=== PATIENT | female | born 1965 | race Caucasian/White ===

== ENCOUNTER 2018-03-03 22:52 | Emergency (ER) | payer OTHER ==
[2018-03-03 22:57] VITALS: TEMP 97.9; BMI 25.8
--- NOTE | 2018-03-04 00:16 | PDOC ---
Attending Attestation - Resident Resident Name: AiramChristopher - ED Attending Attestation I have performed the following: I have examined & evaluated the patient, The case was reviewed & discussed with the resident, I agree w/resident's findings & plan, Exceptions are as noted - HPI HPI: 03/04/18 00:45 52-year-old female with past medical history of gastritis, cholelithiasis, hyperlipidemia presents with epigastric pain. The patient reported that she was in her usual state health when approximate 9 PM, she had drank some coffee. Subsequently developed some burning like sensation in the epigastric radiating up to her chest. Reports some shortness of breath. No fevers or chills. Denies nausea or vomiting. The patient rubs her abdomen and the symptoms resolved. - Physicial Exam PE: 03/04/18 00:46 GENERAL: Awake, alert, and fully oriented, in no acute distress HEAD: No signs of trauma EYES: EOMI, sclera anicteric, conjunctiva clear ENT: Auricles normal inspection, hearing grossly normal, nares patent, Moist mucosa NECK: Normal ROM, supple, LUNGS: Breath sounds equal, clear to auscultation bilaterally. No wheezes, and no crackles HEART: Regular rate and rhythm, normal S1 and S2, no murmurs, rubs or gallops ABDOMEN: Soft, mildly TTP epigastric. Cox sign negative. No guarding, no rebound. No masses EXTREMITIES: Normal range of motion, no edema. No clubbing or cyanosis. No cords, erythema, or tenderness NEUROLOGICAL: Cranial nerves II through XII grossly intact. Normal speech SKIN: Warm, Dry, normal turgor, no rashes or lesions noted. - Medical Decision Making 03/04/18 00:46 Vital Signs Temp Pulse Resp BP Pulse Ox 97.9 F 94 H 18 120/60 99 03/03/18 22:55 03/03/18 22:55 03/03/18 22:55 03/03/18 22:55 03/03/18 22:55 Differential includes gastritis versus cholelithiasis. I suspect this is likely gastritis. However, we'll obtain labs and right upper quadrant ultrasound. If the workup is unremarkable, we'll refer the patient to outpatient general surgery and discharge with a PPI or H2 rik. History and physical makes ACS or PE unlikely. 03/04/18 01:12 CBC, BMP 03/04/18 00:28 03/04/18 00:28 CMP Sodium 140 mmol/L (136-145) 03/04/18 00:28 Potassium 4.8 mmol/L (3.5-5.1) 03/04/18 00:28 Chloride 104 mmol/L (98-107) 03/04/18 00:28 Carbon Dioxide 29 mmol/L (21-32) 03/04/18:28 Anion Gap 6 MMOL/L (8-16) L 03/04/18:28 BUN 14 mg/dL (7-18) 03/04/18 00:28 Creatinine 0.8 mg/dL (0.55-1.3) 03/04/18 00:28 Creat Clearance w eGFR > 60 (>60) 03/04/18: Random Glucose 96 mg/dL (74-106) 03/04/18: Calcium 9.3 mg/dL (8.5-10.1) 03/04/18 00: Total Bilirubin 0.3 mg/dL (0.2-1) 03/04/18 00:28 AST 21 U/L (15-37) 03/04/18 00:28 ALT 21 U/L (13-61) 03/04/18 00:28 Alkaline Phosphatase 62 U/L (45-117) 03/04/18 00:28 Creatine Kinase 63 IU/L (26-192) 03/04/18 00:28 Troponin I < 0.02 ng/ml (0.00-0.05) 03/04/18 00:28 Total Protein 7.5 g/dl (6.4-8.2) 03/04/18 00:28 Albumin 3.9 g/dl (3.4-5.0) 03/04/18 00:28 Lipase 142 U/L (73-393) 03/04/18 00:28 03/04/18 02:12 RUQ ultrasound with no acute cholecystitis. Hemangiomas. Follow up with general surgery. Heart Score/ECG Review #1 ECG reviewed & interpreted by me at: 23:05 03/04/18 00:16 NSR 82, no std/phong, normal axis, normal intervals, QTC 439 msec
--- NOTE | 2018-03-04 00:17 | PDOC ---
History of Present Illness - General Chief Complaint: Chest Pain Stated Complaint: CHEST PAIN NAUSEA Time Seen by Provider: 03/04/18 00:14 - History of Present Illness Initial Comments: 03/04/18 00:34 The patient is a 52 year old female with a history of HLD, Gallstones who presents for evaluation of abdominal pain. The patient reports that she was drinking coffee tonight when she experienced acute onset of sharp burning epigastric abdominal pain with radiation into her chest prompting her presentation to the ED for further evaluation. She states that her symptoms have now resolved and she is currently asymptomatic. She otherwise denies fevers , chills, SOB, vomiting, or changes with urination or bowel movements. Past History - Past Medical History Allergies/Adverse Reactions: Allergies Allergy/AdvReac Type Severity Reaction Status Date / Time No Known Drug Allergies Allergy Verified 03/03/18 22:57 Home Medications: Ambulatory Orders No Home Medications 0 dose .ROUTE UTDICT 04/19/12 Oxycodone HCl/Acetaminophen [Percocet 5/325] 1 combo PO Q6H PRN #20 tablet 04/29 Ranitidine [Zantac -] 150 mg PO DAILY #14 tablet 03/04/18 Anemia: No Asthma: No Cancer: No Cardiac Disorders: No CVA: No COPD: No CHF: No Dementia: No Diabetes: No GI Disorders: No Disorders: No HTN: No Hypercholesterolemia: No Liver Disease: No Seizures: No Thyroid Disease: No - Surgical History Abdominal Surgery: Yes (HERNIA) Appendectomy: No Cardiac Surgery: No Cholecystectomy: No Lung Surgery: No Neurologic Surgery: No Orthopedic Surgery: No - Suicide/Smoking/Psychosocial Hx Smoking Status: Yes Smoking History: Current every day smoker Have you smoked in the past 12 months: Yes Number of Cigarettes Smoked Daily: 30 Information on smoking cessation initiated: Yes 'Breaking Loose' booklet given: 04/28/12 Hx Alcohol Use: Yes (SOCIAL) Drug/Substance Use Hx: No Substance Use Type: None Hx Substance Use Treatment: No Review of Systems - Review of Systems Comments:: 03/04/18 00:37 Constitutional: No fevers, chills, fatigue, malaise HEENT: No Rhinorrhea, nasal congestion, visual changes Cardiovascular: Chest pain. No syncope, palpitations, lightheadedness Respiratory: No Cough, SOB, Hemoptysis, Gastrointestinal: Abdominal pain. No Nausea, Vomiting, Constipation, Diarrhea, Melena Genitourinary: No Dysuria, Frequency, Urgency, Hesitancy, Hematuria, Flank pain Musculoskeletal: No Myalgia, arthralgia Skin: No rashes, itching, bruising, pallor Neurologic: No Headache, Dizziness, Numbness, Weakness, or Tingling Psychiatric: No Hallucinations. No SI or HI *Physical Exam - Vital Signs Last Vital Signs Temp Pulse Resp BP Pulse Ox 97.9 F 94 H 18 120/60 99 03/03/18 22:55 03/03/18 22:55 03/03/18 22:55 03/03/18 22:55 03/03/18 22:55 - Physical Exam Comments: 03/04/18 00:38 General Appearance: Nourished. No Apparent Distress HEENT: No Pharyngeal Erythema, Tonsillar Exudate, Tonsillar Erythema Neck: No Cervical Lymphadenopathy Respiratory/Chest: Lungs Clear, Normal Breath Sounds. No Crackles, Rales, Rhonchi, Wheezing Cardiovascular: Regular Rhythm, Regular Rate. No Murmur, Gallops, Rubs Gastrointestinal/Abdominal: Normal Bowel Sounds, Soft. No Guarding, Rebound, Tenderness Musculoskeletal: No CVA Tenderness Extremity: Normal Capillary Refill Integumentary: Normal Color, Dry, Warm Neurologic: Fully Oriented, Alert, Normal Mood/Affect, Normal Response, Heart Score/ECG Review #1 ECG reviewed & interpreted by me at: 00:38 General ECG Interpretation: Sinus Rhythm, Normal Rate, Normal Intervals, No acute ischemic changes ED Treatment Course - LABORATORY CBC & Chemistry Diagram: 03/04/18 00:28 03/04/18 00:28 Medical Decision Making - Medical Decision Making 03/04/18 00:38 The patient is a 52 year old female with a history of HLD, Gallstones who presents for evaluation of abdominal pain. Differential includes but is not limited to: ACS, Gastritis, Pancreatitis, Gallstones, Infectious, Metabolic Derangement. Given the patient's history and physical exam, we will obtain a cbc, cmp, troponin, lipase, ekg, gallbladder US to evaluate further. We will continue to monitor and reassess while here in the ED. 03/04/18 02:07 CBC, cmp, troponin, lipase are unremarkable. Gallbladder US is unremarkable as preliminarily read by our balloon artist radiologist. Chest plain film is unremarkable. The patient continues to remain asymptomatic and has a benign abdominal exam. We are comfortable discharging the patient home with surgery follow up. We discussed the results, plan, and return precautions with the patient who voiced understanding and is agreeable with the plan. *DC/Admit/Observation/Transfer Diagnosis at time of Disposition: Abdominal pain Qualifiers: Abdominal location: unspecified location Qualified Code(s): R10.9 - Unspecified abdominal pain - Discharge Dispostion Disposition: HOME Condition at time of disposition: Stable Decision to Admit order: No - Prescriptions Prescriptions: Ranitidine [Zantac -] 150 mg PO DAILY #14 tablet - Referrals Referrals: Jamil Henry [Primary Care Provider] - Nadir Beverly MD [Staff Physician] - - Patient Instructions Printed Discharge Instructions: DI for Gastritis Additional Instructions: Please return to the ER if you experience concerning or worsening symptoms including worsening difficulty breathing, weakness, or chest pain. We have sent a prescription to your pharmacy for zantac that you should take daily to help with your symptoms. Your lab results were normal here in the ER. Your ultrasound shows that you have many gallstones. Please call to schedule a follow up appointment with our general surgeon Dr. Beverly within 2-3 days to discuss your ER visit and further management of your symptoms. - Post Discharge Activity
[2018-03-04 00:42] LABS: EOS % 0.3 % (0-4.5); HEMATOCRIT 41.6 % (32.4-45.2); HEMOGLOBIN 14.9 GM/dL (10.7-15.3); LYMPH % 15.5 % (8-40); MCHC 35.7 g/dl (32.0-36.0); MEAN CELL VOLUME 89.6 fl (80-96); MEAN PLT VOLUME 8.6 fl (7.5-11.1); MONO % 6.6 % (3.8-10.2); NEUT % 76.6 % (42.8-82.8); PLATELET COUNT 257 K/MM3 (134-434); RBC 4.64 M/mm3 (3.60-5.2); RDW 13.3 % (11.6-15.6); WHITE BLOOD COUNT 13.5 K/mm3 (4.0-10.0)
[2018-03-04 01:11] LABS: ALBUMIN 3.9 g/dl (3.4-5.0); ALK PHOS 62 U/L (45-117); ANION GAP 6 MMOL/L (8-16); BILIRUBIN,TOTAL 0.3 mg/dL (0.2-1); BLOOD UREA NITROGEN 14 mg/dL (7-18); CALCIUM 9.3 mg/dL (8.5-10.1); CHLORIDE 104 mmol/L (98-107); CO2 29 mmol/L (21-32); CREATININE 0.8 mg/dL (0.55-1.3); GLUCOSE,RANDOM 96 mg/dL (74-106); LIPASE 142 U/L (73-393); POTASSIUM 4.8 mmol/L (3.5-5.1); SGOT/AST 21 U/L (15-37); SGPT/ALT 21 U/L (13-61); SODIUM 140 mmol/L (136-145); TOT PROT 7.5 g/dl (6.4-8.2)
[2018-03-04 02:11] VITALS: BP 124/78; PULSE 84
--- NOTE | 2018-03-04 12:32 | EKG ---
Test Reason : Blood Pressure : / mmHG Vent. Rate : 082 BPM Atrial Rate : 082 BPM P-R Int : 130 ms QRS Dur : 082 ms QT Int : 376 ms P-R-T Axes : 070 058 053 degrees QTc Int : 439 ms NORMAL SINUS RHYTHM NORMAL ECG Confirmed by MD PRABHJOT, DARA ([id number]) on 03/04/2018 12:32:22 PM Referred By: Confirmed By:DARA RICK MD
== END 2018-03-04 02:11 | disposition home or self-care (01) ==
LOC: JER 22:52
DX: R10.9 Unspecified abdominal pain (principal); Z87.19 Personal history of other diseases of the digestive system
CPT/HCPCS: 36415; 71045-TC-FY; 76705-TC; 80053; 82550; 83690; 84484; 85025; 93005; 93010; 99283-25

== ENCOUNTER 2019-03-27 02:32 | Emergency (ER) | payer OTHER ==
[2019-03-27 02:47] VITALS: BP 132/81; PULSE 84; TEMP 98.3; BMI 25.7
--- NOTE | 2019-03-27 03:25 | PDOC ---
History of Present Illness - General Chief Complaint: Pain, Acute Stated Complaint: PAIN Time Seen by Provider: 03/27/19 02:48 History Source: Patient Exam Limitations: No Limitations - History of Present Illness Initial Comments: 03/29/19 22:25 53f no pmh complains of three days of right lower quadrant / right flank pain. Pain described the squeezing originating from right lower quadrant no history of kidney stones patient denies fevers chills denies diarrhea constipation dark bloody stools denies dysuria hematuria and frequency. LMP was 9 months ago patient is not concerned about .patient endorses burning with epigastric sensation similar to what she describes as gastritis. no h/o abd surg. endorses h/o gallstones. Past History - Past Medical History Allergies/Adverse Reactions: Allergies Allergy/AdvReac Type Severity Reaction Status Date / Time No Known Drug Allergies Allergy Verified 03/27/19 02:42 Home Medications: Ambulatory Orders Oxycodone HCl/Acetaminophen [Percocet 5/325] 1 combo PO Q6H PRN #20 tablet 04/29 Ranitidine [Zantac -] 150 mg PO DAILY #14 tablet 03/04/18 Anemia: No Asthma: No Cancer: No Cardiac Disorders: No CVA: No COPD: No CHF: No Dementia: No Diabetes: No GI Disorders: No Disorders: No HTN: No Hypercholesterolemia: No Liver Disease: No Seizures: No Thyroid Disease: No - Surgical History Abdominal Surgery: Yes (HERNIA) Appendectomy: No Cardiac Surgery: No Cholecystectomy: No Lung Surgery: No Neurologic Surgery: No Orthopedic Surgery: No - Psycho Social/Smoking Cessation Hx Smoking Status: Yes Smoking History: Current every day smoker Have you smoked in the past 12 months: Yes Number of Cigarettes Smoked Daily: 20 Information on smoking cessation initiated: No 'Breaking Loose' booklet given: 04/28/12 Hx Alcohol Use: No Drug/Substance Use Hx: No Substance Use Type: None Hx Substance Use Treatment: No Review of Systems - Review of Systems Comments:: 03/29/19 22:25 CONSTITUTIONAL: Denies F / C HEENT: Denies headache, lightheadedness, dizziness RESP: Denies SOB CARD: Denies chest pain, palpitations GI: Endorses RLQ, Right flank pain. Endorses midepigastric discomfort. Endorses one episode of nausea the prior day. Denies V / D, bloody stool, inability to tolerate PO : Denies dysuria, hematuria, frequency SKIN: Denies rashes NEURO: Denies numbness, tingling, weakness MSK: Denies back pain *Physical Exam - Vital Signs Last Vital Signs Temp Pulse Resp BP Pulse Ox 98.3 F 84 20 132/81 99 03/27/19 02:43 03/27/19 02:43 03/27/19 02:43 03/27/19 02:43 03/27/19 02:43 - Physical Exam 03/29/19 22:25 GEN: Well appearing, NAD, comfortable. AAOx3 HEENT: NC/AT, EOMI, PERRLA. No facial asymmetry. Moist mucous membranes. Normal voice. Supple neck w/ FROM. CV: S1/S2, RRR, no m/r/g LUNG: CTAB, no wheezes, crackles, rales, rhonchi. GI: +TTP, mild, of the RLQ and R Flank otherwise soft, nd, +BS, no guarding, no rebound. No masses. Neg CVAT b/l. EXTREMITIES: No obvious deformities of all extremities. SKIN: warm, dry, normal turgor PSYCH: normal mood and affect NEURO: Moving all extremities well. ED Treatment Course - LABORATORY CBC & Chemistry Diagram: 03/27/19 04:00 03/27/19 04:00 Medical Decision Making - Medical Decision Making 03/27/19 03:22 53F RLQ / R flank pain x 3 days. H/o gallstones, no prior abd surg. DDx - appendicitis, stones, biliary pathology - cbc, cmp - UA - CT A/P labs reviewed CT A/P shows gallstones w/o acute pathology or gallbladder inflammation 03/27/19 7:00 Patient discharged home w/ general surgery f/u Callback request placed if UA positive. Discharge - Discharge Information Problems reviewed: Yes Clinical Impression/Diagnosis: Abdominal pain Qualifiers: Abdominal location: right lower quadrant Qualified Code(s): R10.31 - Right lower quadrant pain Disposition: HOME - Admission No - Follow up/Referral Referrals: Jamil Henry [Primary Care Provider] - Norm Murray MD [Staff Physician] - CallBack Reminder: lab - Patient Discharge Instructions Patient Printed Discharge Instructions: DI for Abdominal Pain-Adult Additional Instructions: You were seen and treated in the Emergency Department A copy of your CT results and labs were provided to you. Follow up with your primary care doctor regarding your symptoms. Follow up with General surgery regarding your symptoms and findings. We are referring you to Dr. Murray, you may call and schedule an appointment with him. Take pepcid and maalox for your abdominal symptoms. Return to the nearest Emergency Department if you experience worsening or concerning symptoms. - Post Discharge Activity
[2019-03-27] MEDS ORDERED: MAG HYDROX/AL HYDROX/SIMETH 30 ML UNIT-DOSE CUP PO ONE (03:44)
[2019-03-27] MEDS ORDERED: FAMOTIDINE 20 MG/50 ML IVPB 20 MG/50 ML MG IVPB ONE ×2 (03:44→04:10)
[2019-03-27] MEDS ORDERED: MAG HYDROX/AL HYDROX/SIMETH 30 ML UNIT-DOSE CUP ONE (04:10)
[2019-03-27 04:33] LABS: EOS % 0.9 % (0-4.5); HEMATOCRIT 43.3 % (32.4-45.2); HEMOGLOBIN 14.8 GM/dL (10.7-15.3); LYMPH % 37.2 % (8-40); MCH 31.4 pg (25.7-33.7); MCHC 34.2 g/dl (32.0-36.0); MEAN CELL VOLUME 91.9 fl (80-96); MEAN PLT VOLUME 9.3 fl (7.5-11.1); MONO % 7.6 % (3.8-10.2); NEUT % 53.3 % (42.8-82.8); PLATELET COUNT 236 K/MM3 (134-434); RBC 4.72 M/mm3 (3.60-5.2); RDW 12.8 % (11.6-15.6); WHITE BLOOD COUNT 9.3 K/mm3 (4.0-10.0)
--- NOTE | 2019-03-27 04:49 | PDOC ---
Attending Attestation - Resident Resident Name: Chris Lopez - ED Attending Attestation I have performed the following: I have examined & evaluated the patient, The case was reviewed & discussed with the resident, I agree w/resident's findings & plan, Exceptions are as noted - HPI HPI: 03/27/19 07:16 53F no pmh here with 3 days of abdominal and flank pain, burning pain epigastrically, sharp pain to the flank and RLQ, a/w nausea w/o vomiting - Physicial Exam PE: 03/27/19 07:17 NAD, AOx3, normal wob +TTP RLQ -CVAT - Medical Decision Making 03/27/19 07:17 consider gastritis, appy, edmond, nephrolithiasis, infection f/u labs, imaging, ua, ucx analgesia, re-eval Patient symptomatically improved, well appearing CT ap w/o acute process f/u UA Treat if positive DC with gen surgery follow up
[2019-03-27 05:01] LABS: BILIRUBIN,TOTAL 0.3 mg/dL (0.2-1); BLOOD UREA NITROGEN 11.7 mg/dL (7-18); CALCIUM 9.2 mg/dL (8.5-10.1); CREATININE 0.8 mg/dL (0.55-1.3); TOT PROT 7.2 g/dl (6.4-8.2)
[2019-03-27 08:01] LABS: URINE APPEARANCE CLEAR; URINE BILIRUBIN NEGATIVE (NEGATIVE); URINE COLOR YELLOW; URINE GLUCOSE (UA) NEGATIVE (NEGATIVE); URINE KETONE NEGATIVE (NEGATIVE); URINE LEUK ESTERASE TRACE (NEGATIVE); URINE NITRITE NEGATIVE (NEGATIVE); URINE PROTEIN NEGATIVE (NEGATIVE); URINE UROBILINOGEN 0.2 mg/dL (0.2-1.0)
[2019-03-27 12:17] LABS: EPI CELLS 6 /HPF (0-5/HPF); HYALINE CASTS FEW /lpf (0-8); URINE BACTERIA RARE /hpf (NEGATIVE); URINE RBC 4 /hpf (0-4); URINE WBC 8 /hpf (0-5); YEAST FEW (NEGATIVE)
== END 2019-03-27 08:21 | disposition home or self-care (01) ==
LOC: JER 02:32
PROC: 3E033GC Introduction of Other Therapeutic Substance into Peripheral Vein, Percutaneous Approach (ICD-10-PCS; principal; 2019-03-27)
DX: R10.31 Right lower quadrant pain (principal)
CPT/HCPCS: 36415; 74177-TC; 80053; 81003; 83690; 84703; 85025; 99283-25; Q9967